=== PATIENT | male | born 1965 | race Caucasian/White ===

== ENCOUNTER 2018-12-27 08:46 | Day surgery (SDC) | payer OTHER ==
[2018-12-27] MEDS ORDERED: FENTAnyl 50 MCG/ML VIAL (10:47)
[2018-12-27] MEDS ORDERED: MIDAZOLAM 1 MG/ML 2 ML INJ ×3 (10:47→10:48)
== END 2018-12-27 12:17 | disposition home or self-care (01) ==
LOC: GIL 08:46
DX: Z12.11 Encounter for screening for malignant neoplasm of colon (principal); K64.4 Residual hemorrhoidal skin tags
CPT/HCPCS: 45378